=== PATIENT | female | born 1985 | race Hispanic/Latino ===

== ENCOUNTER 2017-08-01 16:59 | Observation (INO) | payer OTHER ==
[2017-08-01] MEDS ORDERED: Hydrocortisone- 100 MG in Sodium Chloride 0.9% 100 ML IV STA (17:41)
[2017-08-01] MEDS ORDERED: Sodium Chloride 0.9% 1,000 ML IV STA ×2 (17:44→20:24)
[2017-08-01 18:05] LABS: BASO % 0.1 % (0.0-2.0); EOS # 0.1 K/uL (0.0-0.7); EOS % 0.6 % (0.0-4.0); HEMATOCRIT 42.9 % (34.0-47.0); LYMPH # 2.2 K/uL (1.0-4.3); LYMPH % 17.1 % (20.0-40.0); MEAN CELL VOLUME 82.6 fl (81.0-99.0); MEAN CORPUSCULAR HGB CONC 31.5 g/dL (33.0-37.0); MEAN PLATELET VOLUME 7.9 fl (7.2-11.7); MONO # 0.3 K/uL (0.0-0.8); MONO % 2.4 % (0.0-10.0); NEUT # 10.4 K/uL (1.8-7.0); NEUT % 79.8 % (50.0-75.0); NRBC % 0.1 % (0.0-0.0); RED CELL DISTRIBUTION WIDTH 16.9 % (11.5-14.5); WHITE BLOOD COUNT 13.1 K/uL (4.8-10.8)
[2017-08-01 18:19] LABS: ALB/GLOB RATIO 1.4 (1.0-2.1); ALKALINE PHOSPHATASE 92 U/L (38-126); ALT/SGPT 31 U/L (9-52); AST/SGOT 18 U/L (14-36); BILIRUBIN,TOTAL 0.7 mg/dl (0.2-1.3); BLOOD UREA NITROGEN 12 mg/dl (7-17); CALCIUM 9.3 mg/dL (8.4-10.2); CARBON DIOXIDE 20 mmol/L (22-30); CHLORIDE 108 mmol/L (98-107); GFR AFRICAN-AMERICAN > 60; GLUCOSE,RANDOM 118 mg/dL (65-105); POTASSIUM 3.1 MMOL/L (3.6-5.0); SODIUM 141 mmol/l (132-148); TOTAL PROTEIN 7.6 G/DL (6.3-8.2)
[2017-08-01] MEDS ORDERED: Potassium Chloride 20 mEq ER Tab PO STA (18:44)
[2017-08-01 18:51] LABS: VENOUS BLOOD GAS BASE EXCESS -2.2 mmol/L (0.0-2.0); VENOUS BLOOD GAS PCO2 47 mmHg (40-60); VENOUS BLOOD PH 7.32 (7.32-7.43)
--- NOTE | 2017-08-01 19:28 | ED PDOC ---
HPI: General Adult Time Seen by Provider: 08/01/17 18:01 Chief Complaint (Nursing): GI Problem Chief Complaint (Provider): vomiting History Per: Patient (32 y/o female h/o Adrenal insufficiency here with vomiting since 12 noon. Patient took daily 15mg hydrocortisone in AM and missed her 10 mg pm dose. Attributes vomiting to this. Denies any fevers/ chills/uri/cough. ?diarrhea. No h/o abdominal surgeries.) Past Medical History Reviewed: Historical Data, Nursing Documentation, Vital Signs Vital Signs: Last Vital Signs Temp 98.0 F 08/01/17 17:11 Pulse 129 H 08/01/17 17:11 Resp 16 08/01/17 17:11 BP 128/87 08/01/17 17:11 Pulse Ox 98 08/01/17 17:11 - Surgical History Other surgeries: removal of adrenal gland - Family History Family History: States: No Known Family Hx - Home Medications Home Medications: Ambulatory Orders Medication Instructions Recorded Hydrocortisone [Cortef] 10 mg PO DAILY@1500 08/01/17 Hydrocortisone [Cortef] 15 mg PO DAILY 08/01/17 - Allergies Allergies/Adverse Reactions: Allergies Allergy/AdvReac Type Severity Reaction Status Date / Time Penicillins Allergy RASH Verified 08/01/17 17:11 Review of Systems ROS Statement: Except As Marked, All Systems Reviewed And Found Negative Gastrointestinal: Positive for: Vomiting Physical Exam - Reviewed Nursing Documentation Reviewed: Yes Vital Signs Reviewed: Yes - Physical Exam Appears: Positive for: Well, Non-toxic, No Acute Distress Head Exam: Positive for: ATRAUMATIC, NORMAL INSPECTION, NORMOCEPHALIC Skin: Positive for: Normal Color, Warm, DRY Eye Exam: Positive for: EOMI, Normal appearance, PERRL ENT: Positive for: Normal ENT Inspection Neck: Positive for: Normal, Painless ROM Cardiovascular/Chest: Positive for: Regular Rate, Rhythm Respiratory: Positive for: CNT, Normal Breath Sounds Gastrointestinal/Abdominal: Positive for: Normal Exam, Bowel Sounds, Soft Back: Positive for: Normal Inspection Extremity: Positive for: Normal ROM Neurologic/Psych: Positive for: Alert, Oriented - Laboratory Results Result Diagrams: 08/01/17 18:00 08/01/17 18:00 - ECG O2 Sat by Pulse Oximetry: 98 - Progress ED Course And Treament: cxr: nad Zofran 8 mg iv x 1 dose NS 1 liter wide open Hydrocortisone 100mg iv as d/w Dr. Sommer d/w Endocrine fellow [facility] for Dr. Castanon. kdur 40 meq x 1 dose d/w Dr. Long for admission Disposition - Clinical Impression Clinical Impression: Adrenal insufficiency, Vomiting - Patient ED Disposition Is Patient to be Admitted: Yes - Disposition Disposition Time: 19:10 Condition: FAIR - Pt Status Changed To: Hospital Disposition Of: Observation
[2017-08-01] MEDS ORDERED: Potassium Chloride 20 mEq ER Tab PO ONE ×2 (19:34→19:43)
[2017-08-01] MEDS ORDERED: Sodium Chloride 0.9% 1,000 ML IV SCH (22:45)
[2017-08-02 07:40] LABS: HEMATOCRIT 34.7 % (34.0-47.0); MEAN CELL VOLUME 81.6 fl (81.0-99.0); MEAN CORPUSCULAR HEMOGLOBIN 25.9 pg (27.0-31.0); MEAN CORPUSCULAR HGB CONC 31.8 g/dL (33.0-37.0); WHITE BLOOD COUNT 9.2 K/uL (4.8-10.8)
[2017-08-02 07:54] LABS: BLOOD UREA NITROGEN 11 mg/dl (7-17); CALCIUM 7.7 mg/dL (8.4-10.2); CARBON DIOXIDE 20 mmol/L (22-30); CHLORIDE 111 mmol/L (98-107); GFR AFRICAN-AMERICAN > 60; GLUCOSE,RANDOM 76 mg/dL (65-105); POTASSIUM 3.6 MMOL/L (3.6-5.0); SODIUM 140 mmol/l (132-148)
[2017-08-02 07:56] VITALS: BP 102/64; PULSE 91; RESP 17; TEMP 97.8; O2SAT 97
--- NOTE | 2017-08-02 08:48 | CARD ---
APPROVED REPORT EKG Measurement Heart [id number] <Conclusion> Normal sinus rhythm Normal ECG
--- NOTE | 2017-08-02 08:56 | RAD ---
PROCEDURE: CHEST RADIOGRAPH, 1 VIEW HISTORY: routine COMPARISON: None available. FINDINGS: LUNGS: No infiltrate identified bilaterally. PLEURA: No pneumothorax or pleural fluid seen. CARDIOVASCULAR: Normal. OSSEOUS STRUCTURES: No significant abnormalities. VISUALIZED UPPER ABDOMEN: Normal. OTHER FINDINGS: None. IMPRESSION: No acute cardiopulmonary disease appreciated.
--- NOTE | 2017-08-02 10:37 | CP.PCM.HP ---
History of Present Illness - History of Present Illness History of Present Illness: CC: N/V/D and Dizziness History of Present Illness: A 33 yoF h/o Adrenal insufficiency here with vomiting since 12 noon. Patient took daily 15mg hydrocortisone in AM and missed her 10 mg pm dose. Attributes vomiting to this.+diarrhea. No h/o abdominal surgeries. Associated dizziness. Denies any fevers/chills/uri/cough. Admitted hor Hypotension due adrenal Insufficiency due stresses. Received Hydrocortisone 100mg IV in the er. Present on Admission - Present on Admission Any Indicators Present on Admission: No Review of Systems - Review of Systems All systems: reviewed and no additional remarkable complaints except Past Patient History - Past Medical History & Family History Past Medical History?: Yes Past Family History: Reviewed and not pertinent - Past Social History Smoking Status: Never Smoked Alcohol: None Drugs: Denies - CARDIAC Hx Cardiac Disorders: No - PULMONARY Hx Respiratory Disorders: No - NEUROLOGICAL Hx Neurological Disorder: No - HEENT Hx HEENT Problems: Yes Other/Comment: Use Eyeglasses - RENAL Hx Chronic Kidney Disease: No - ENDOCRINE/METABOLIC Hx Endocrine Disorders: Yes Other/Comment: adrenal insufficiency - HEMATOLOGICAL/ONCOLOGICAL Hx Blood Disorders: No - INTEGUMENTARY Hx Dermatological Problems: No - MUSCULOSKELETAL/RHEUMATOLOGICAL Hx Musculoskeletal Disorders: No Hx Falls: No - GASTROINTESTINAL Hx Gastrointestinal Disorders: No - GENITOURINARY/GYNECOLOGICAL Hx Genitourinary Disorders: No - PSYCHIATRIC Hx Psychophysiologic Disorder: No Hx Substance Use: No - SURGICAL HISTORY Hx Surgeries: Yes Other/Comment: Adrenal glang removed - 2016. . Bunnion removal , and. Left breast cyst removal - ANESTHESIA Hx Anesthesia: Yes Hx Anesthesia Reactions: No Hx Malignant Hyperthermia: No Has any member of the family had a problem w/ anesthesia?: No Meds Allergies/Adverse Reactions: Allergies Allergy/AdvReac Type Severity Reaction Status Date / Time Penicillins Allergy RASH Verified 08/01/17 17:11 Physical Exam - Constitutional Appears: Well, No Acute Distress - Head Exam Head Exam: ATRAUMATIC, NORMAL INSPECTION, NORMOCEPHALIC - Eye Exam Eye Exam: EOMI, Normal appearance, PERRL Pupil Exam: NORMAL ACCOMODATION, PERRL - ENT Exam ENT Exam: Mucous Membranes Moist, Normal Exam - Neck Exam Neck exam: Positive for: Normal Inspection - Respiratory Exam Respiratory Exam: Clear to Auscultation Bilateral, NORMAL BREATHING PATTERN - Cardiovascular Exam Cardiovascular Exam: REGULAR RHYTHM, +S1, +S2 - GI/Abdominal Exam GI & Abdominal Exam: Normal Bowel Sounds, Soft. absent: Tenderness - Extremities Exam Extremities exam: Positive for: full ROM, normal capillary refill, normal inspection - Neurological Exam Neurological exam: Alert, CN II-XII Intact, Normal Gait, Oriented x3, Reflexes Normal - Psychiatric Exam Psychiatric exam: Normal Affect, Normal Mood - Skin Skin Exam: Dry, Intact, Normal Color, Warm Results - Vital Signs Recent Vital Signs: Last Vital Signs Temp 97.8 F 08/02/17 07:56 Pulse 91 H 08/02/17 07:56 Resp 17 08/02/17 07:56 BP 102/64 08/02/17 07:56 Pulse Ox 97 08/02/17 07:56 - Labs Result Diagrams: 08/02/17 06:15 08/02/17 06:15 Labs: Laboratory Results - last 24 hr 08/01/17 08/01/17 08/01/17 17:58 18:00 18:00 WBC 13.1 H RBC 5.19 Hgb 13.5 Hct 42.9 MCV 82.6 MCH 26.0 L MCHC 31.5 L RDW 16.9 H Plt Count 257 MPV 7.9 Neut % (Auto) 79.8 H Lymph % (Auto) 17.1 L [place] % (Auto) 2.4 Eos % (Auto) 0.6 Baso % (Auto) 0.1 Neut # 10.4 H Lymph # 2.2 [place] # 0.3 Eos # 0.1 Baso # 0.0 pO2 VBG pH VBG pCO2 VBG HCO3 VBG Total CO2 VBG O2 Sat (Calc) VBG Base Excess VBG Potassium Glucose Lactate FiO2 Sodium 141 Potassium 3.1 L Chloride 108 H Carbon Dioxide 20 L Anion Gap 16 BUN 12 Creatinine 0.9 Est GFR ( Amer) > 60 Est GFR (Non-Af Amer) > 60 POC Glucose (mg/dL) 118 H Random Glucose 118 H Calcium 9.3 Total Bilirubin 0.7 AST 18 ALT 31 Alkaline Phosphatase 92 Total Protein 7.6 Albumin 4.5 Globulin 3.1 Albumin/Globulin Ratio 1.4 Venous Blood Potassium 08/01/17 08/02/17 08/02/17 18:37 06:15 06:15 WBC 9.2 RBC 4.26 Hgb 11.0 L D Hct 34.7 MCV 81.6 MCH 25.9 L MCHC 31.8 L RDW 17.0 H Plt Count 218 MPV Neut % (Auto) Lymph % (Auto) [place] % (Auto) Eos % (Auto) Baso % (Auto) Neut # Lymph # [place] # Eos # Baso # pO2 9 L VBG pH 7.32 VBG pCO2 47 VBG HCO3 20.8 VBG Total CO2 25.6 VBG O2 Sat (Calc) 19.7 L VBG Base Excess -2.2 L VBG Potassium 3.0 L Glucose 100 Lactate 1.8 FiO2 21.0 Sodium 141.0 140 Potassium 3.6 Chloride 108.0 H 111 H Carbon Dioxide 20 L Anion Gap 13 BUN 11 Creatinine 0.7 Est GFR ( Amer) > 60 Est GFR (Non-Af Amer) > 60 POC Glucose (mg/dL) Random Glucose 76 Calcium 7.7 L Total Bilirubin AST ALT Alkaline Phosphatase Total Protein Albumin Globulin Albumin/Globulin Ratio Venous Blood Potassium 3.0 L - EKG Data EKG Interpreted by: Myself EKG shows normal: Sinus rhythm, [place], Intervals, QRS complexes, ST-T waves Rate: Normal - Imaging and Cardiology Chest x-ray Status: Report reviewed by me Additional comment: Normal study Assessment & Plan (1) Adrenal insufficiency Assessment and Plan: Hypotension Precipitated by N/V/D IVF Bolus abnd Standing dose 100cc/hr Hydrocortisone stress dose 100mg IV given in the ER Patient has Endocrinologits who recommended 45mg in Am and 30mg in PM Monitored overnight, and BP has been stable D/c home Status: Acute
--- NOTE | 2017-08-02 10:46 | CP.PCM.DIS ---
Provider - Provider Date of Admission: 08/01/17 19:10 Attending physician: Nelda Long MD Time Spent in preparation of Discharge (in minutes): 20 Diagnosis - Discharge Diagnosis (1) Adrenal insufficiency Status: Acute Hospital Course - Lab Results Lab Results: Most Recent Lab Values WBC 9.2 K/uL (4.8-10.8) 08/02/17 06:15 RBC 4.26 Mil/uL (3.80-5.20) 08/02/17 06:15 Hgb 11.0 g/dL (12.0-16.0) L D 08/02/17 06:15 Hct 34.7 % (34.0-47.0) 08/02/17 06:15 MCV 81.6 fl (81.0-99.0) 08/02/17 06:15 MCH 25.9 pg (27.0-31.0) L 08/02/17 06:15 MCHC 31.8 g/dL (33.0-37.0) L 08/02/17 06:15 RDW 17.0 % (11.5-14.5) H 08/02/17 06:15 Plt Count 218 K/uL (130-400) 08/02/17 06:15 MPV 7.9 fl (7.2-11.7) 08/01/17 18:00 Neut % (Auto) 79.8 % (50.0-75.0) H 08/01/17 18:00 Lymph % (Auto) 17.1 % (20.0-40.0) L 08/01/17 18:00 [place] % (Auto) 2.4 % (0.0-10.0) 08/01/17 18:00 Eos % (Auto) 0.6 % (0.0-4.0) 08/01/17 18:00 Baso % (Auto) 0.1 % (0.0-2.0) 08/01/17 18:00 Neut # 10.4 K/uL (1.8-7.0) H 08/01/17 18:00 Lymph # 2.2 K/uL (1.0-4.3) 08/01/17 18:00 [place] # 0.3 K/uL (0.0-0.8) 08/01/17 18:00 Eos # 0.1 K/uL (0.0-0.7) 08/01/17 18:00 Baso # 0.0 K/uL (0.0-0.2) 08/01/17 18:00 pO2 9 mm/Hg (30-55) L 08/01/17 18:37 VBG pH 7.32 (7.32-7.43) 08/01/17 18:37 VBG pCO2 47 mmHg (40-60) 08/01/17 18:37 VBG HCO3 20.8 mmol/L 08/01/17 18:37 VBG Total CO2 25.6 mmol/L (22-28) 08/01/17 18:37 VBG O2 Sat (Calc) 19.7 % (40-65) L 08/01/17 18:37 VBG Base Excess -2.2 mmol/L (0.0-2.0) L 08/01/17 18:37 VBG Potassium 3.0 mmol/L (3.6-5.2) L 08/01/17 18:37 Sodium 141.0 mmol/L (132-148) 08/01/17 18:37 Chloride 108.0 mmol/L (98-107) H 08/01/17 18:37 Glucose 100 mg/dL (65-105) 08/01/17 18:37 Lactate 1.8 mmol/L (0.7-2.1) 08/01/17 18:37 FiO2 21.0 % 08/01/17 18:37 Sodium 140 mmol/l (132-148) 08/02/17 06:15 Potassium 3.6 MMOL/L (3.6-5.0) 08/02/17 06:15 Chloride 111 mmol/L (98-107) H 08/02/17 06:15 Carbon Dioxide 20 mmol/L (22-30) L 08/02/17 06:15 Anion Gap 13 (10-20) 08/02/17 06:15 BUN 11 mg/dl (7-17) 08/02/17 06:15 Creatinine 0.7 mg/dl (0.7-1.2) 08/02/17 06:15 Est GFR ( Amer) > 60 08/02/17 06:15 Est GFR (Non-Af Amer) > 60 08/02/17 06:15 POC Glucose (mg/dL) 118 mg/dL (65-110) H 08/01/17 17:58 Random Glucose 76 mg/dL (65-105) 08/02/17 06:15 Calcium 7.7 mg/dL (8.4-10.2) L 08/02/17 06:15 Total Bilirubin 0.7 mg/dl (0.2-1.3) 08/01/17 18:00 AST 18 U/L (14-36) 08/01/17 18:00 ALT 31 U/L (9-52) 08/01/17 18:00 Alkaline Phosphatase 92 U/L (38-126) 08/01/17 18:00 Total Protein 7.6 G/DL (6.3-8.2) 08/01/17 18:00 Albumin 4.5 g/dL (3.5-5.0) 08/01/17 18:00 Globulin 3.1 gm/dL (2.2-3.9) 08/01/17 18:00 Albumin/Globulin Ratio 1.4 (1.0-2.1) 08/01/17 18:00 Venous Blood Potassium 3.0 mmol/L (3.6-5.2) L 08/01/17 18:37 Discharge Exam - Head Exam Head Exam: ATRAUMATIC, NORMAL INSPECTION, NORMOCEPHALIC - Eye Exam Eye Exam: EOMI, Normal appearance, PERRL Pupil Exam: NORMAL ACCOMODATION, PERRL - Respiratory Exam Respiratory Exam: Clear to PA & Lateral, NORMAL BREATHING PATTERN - GI/Abdominal Exam GI & Abdominal Exam: Normal Bowel Sounds - Rectal Exam Rectal Exam: NORMAL INSPECTION - Exam Exam: Circumcision, NORMAL INSPECTION External exam: NORMAL EXTERNAL EXAM Speculum exam: NORMAL SPECULUM EXAM Bimanual exam: NORMAL BIMANUAL EXAM - Neurological Exam Neurological exam: Alert, CN II-XII Intact, Normal Gait, Oriented x3, Reflexes Normal - Psychiatric Exam Psychiatric exam: Normal Affect, Normal Mood - Skin Skin Exam: Dry, Intact, Normal Color, Warm Discharge Plan - Follow Up Plan Condition: GOOD Disposition: HOME/ ROUTINE
== END 2017-08-02 13:08 | disposition home or self-care (01) ==
LOC: H.ER 16:59 → H.ERHOLD 19:10 → H.MEDSURG1 21:08
PROVIDERS: ADMIT Internal Medicine; ATTEND Internal Medicine
DX: E27.40 Unspecified adrenocortical insufficiency (principal); I95.9 Hypotension, unspecified; Z88.0 Allergy status to penicillin
CPT/HCPCS: 36415; 71010; 80048; 80053; 81025; 82803; 82948; 83036; 85025; 85027; 87040; 93005; 96360; 96374; 99284; G0378; J1720; J2405; J7040

== ENCOUNTER 2018-11-24 08:39 | Emergency (ER) | payer OTHER ==
[2018-11-24 08:47] VITALS: BMI 21.1
[2018-11-24 08:48] VITALS: O2SAT 98
[2018-11-24] MEDS: Dextrose 5%/0.9% NS 1,000 ML IV SCH (09:32)
[2018-11-24 09:39] LABS: BASO % 0.2 % (0.0-2.0); HEMOGLOBIN 13.6 g/dL (12.0-16.0); LYMPH # 0.4 K/uL (1.0-4.3); LYMPH % 7.7 % (20.0-40.0); MEAN CELL VOLUME 84.4 fl (81.0-99.0); MEAN CORPUSCULAR HGB CONC 33.2 g/dL (33.0-37.0); MEAN PLATELET VOLUME 7.7 fl (7.2-11.7); MONO # 0.2 K/uL (0.0-0.8); MONO % 4.4 % (0.0-10.0); NEUT # 4.8 K/uL (1.8-7.0); NEUT % 87.7 % (50.0-75.0); PLATELET COUNT 237 K/uL (130-400); RBC 4.87 Mil/uL (3.80-5.20); RED CELL DISTRIBUTION WIDTH 13.7 % (11.5-14.5); WHITE BLOOD COUNT 5.5 K/uL (4.8-10.8)
[2018-11-24 10:09] LABS: ALB/GLOB RATIO 1.3 (1.0-2.1); ALBUMIN 4.3 g/dL (3.5-5.0); ALT/SGPT 22 U/L (9-52); AST/SGOT 23 U/L (14-36); BLOOD UREA NITROGEN 17 mg/dl (7-17); GFR NON-AFRICAN AMERICAN > 60
[2018-11-24 12:20] LABS: BANDS 3 % (0-2); LYMPHOCYTE 11 % (20-50); MONOCYTE 5 % (0-10); NEUTROPHIL 81 % (42-75); PLATELET ESTIMATE NORMAL (NORMAL); TOTAL CELLS COUNTED 100
[2018-11-24 14:37] LABS: SQUAMOUS EPITHIAL 6 /hpf (0-5); URINE BILIRUBIN NEGATIVE (NEGATIVE); URINE CLARITY SLIGHTY-CLOUDY (Clear); URINE COLOR YELLOW (YELLOW); URINE GLUCOSE (UA) NEG (NEGATIVE); URINE LEUKOCYTE ESTERASE NEG Leu/uL (Negative); URINE PROTEIN 30 mg/dL (NEGATIVE); URINE UROBILINOGEN 0.2-1.0 mg/dL (0.2-1.0)
[2018-11-24 14:52] LABS: URINE BLOOD SMALL (NEGATIVE)
[2018-11-24] MEDS: Lactated Ringer's 1,000 ML IV SCH (15:25)
--- NOTE | 2018-11-24 16:21 | ED PDOC ---
HPI: General Adult Time Seen by Provider: 11/24/18 09:09 Chief Complaint (Nursing): GI Problem Chief Complaint (Provider): vomiting, nausea, weakness History Per: Patient History/Exam Limitations: no limitations Onset/Duration Of Symptoms: Days (1), Gradual Current Symptoms Are (Timing): Still Present Severity: Severe Additional Complaint(s): 33yo female history of adrenal insufficiency, takes hydrocortisone 5mg daily, since yesterday having nausea and vomiting, unable to keep oral hydrocortisone down. Denies fever although feels chills, body aches. Denies preceeding headache, sore throat, or other flu like symptoms. Had prior episode of spontaneous adrenal crisis requiring hospitalization but this episode "not as bad", as prior was almost unconscious. 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 Past Medical History Reviewed: Historical Data, Nursing Documentation, Vital Signs Vital Signs: Last Vital Signs Temp 98.6 F 11/24/18 08:47 Pulse 127 H 11/24/18 08:47 Resp 17 11/24/18 08:47 BP 104/75 11/24/18 08:47 Pulse Ox 98 11/24/18 08:47 - Medical History PMH: Luli's Syndrome Denies: Chronic Kidney Disease - Surgical History Surgical History: Other surgeries: adrenalectomy - Family History Family History: States: Unknown Family Hx - Living Arrangements Living Arrangements: With Family - Social History Current smoker - smoking cessation education provided: No - Immunization History Hx Tetanus Toxoid Vaccination: No Hx Influenza Vaccination: No Hx Pneumococcal Vaccination: No - Home Medications Home Medications: Ambulatory Orders Medication Instructions Recorded Hydrocortisone [Cortef] 10 mg PO DAILY@1500 08/01/17 Hydrocortisone [Cortef] 15 mg PO DAILY 08/01/17 Ondansetron ODT [Zofran ODT] 4 mg PO Q6 PRN #10 odt 11/24/18 - Allergies Allergies/Adverse Reactions: Allergies Allergy/AdvReac Type Severity Reaction Status Date / Time Penicillins Allergy RASH Verified 08/01/17 17:11 Review of Systems Constitutional: Positive for: Weakness, Malaise Eyes: Negative for: Pain, Vision Change, Conjunctivae Inflammation ENT: Negative for: Ear Discharge, Throat Pain Cardiovascular: Negative for: Chest Pain, Palpitations, Orthopnea Respiratory: Negative for: Shortness of Breath Gastrointestinal: Positive for: Vomiting, Diarrhea Genitourinary Female: Negative for: Dysuria, Hematuria Musculoskeletal: Positive for: Other (myalgias) Skin: Negative for: Rash, Lesions, Jaundice Neurological: Positive for: Dizziness. Negative for: Weakness, Numbness, Headache Psych: Negative for: Suicidal ideation Physical Exam - Reviewed Nursing Documentation Reviewed: Yes Vital Signs Reviewed: Yes - Physical Exam Appears: Positive for: Non-toxic, Uncomfortable (dehydrated appearing) Head Exam: Positive for: ATRAUMATIC, NORMAL INSPECTION, NORMOCEPHALIC Skin: Positive for: Warm, Dry, Pallor. Negative for: Jaundice, Mottled, Cyanosis Eye Exam: Positive for: Normal appearance, EOMI, PERRL ENT: Positive for: Normal ENT Inspection, Other (dry mucous membranes) Neck: Positive for: Normal, Painless ROM Cardiovascular/Chest: Positive for: Regular Rate, Rhythm Respiratory: Positive for: Normal Breath Sounds. Negative for: Decreased Breath Sounds Pulses-Radial (L): 3+/4+ Pulses-Radial (R): 3+/4+ Gastrointestinal/Abdominal: Positive for: Soft. Negative for: Tenderness Back: Positive for: Normal Inspection Extremity: Positive for: Normal ROM. Negative for: Swelling Neurological/Psych: Positive for: Awake, Alert, Normal Tone, Oriented. Negative for: Lethargic, Motor/Sensory Deficits, Facial Droop - Laboratory Results Result Diagrams: 11/24/18 09:29 11/24/18 09:29 Lab Results: Troponin I < 0.0120 ng/mL (0.00-0.120) 11/24/18 09:29 Total Bilirubin 0.8 mg/dl (0.2-1.3) 11/24/18 09:29 AST 23 U/L (14-36) 11/24/18 09:29 ALT 22 U/L (9-52) 11/24/18 09:29 Alkaline Phosphatase 75 U/L (38-126) 11/24/18 09:29 Total Protein 7.5 G/DL (6.3-8.2) 11/24/18 09:29 Albumin 4.3 g/dL (3.5-5.0) 11/24/18 09:29 Globulin 3.2 gm/dL (2.2-3.9) 11/24/18 09:29 Albumin/Globulin Ratio 1.3 (1.0-2.1) 11/24/18 09:29 Urine Color Yellow (YELLOW) 11/24/18 09:45 Urine Clarity Slighty-cloudy (Clear) 11/24/18 09:45 Urine pH 5.0 (5.0-8.0) 11/24/18 09:45 Ur Specific [place] 1.030 (1.003-1.030) 11/24/18 09:45 Urine Protein 30 mg/dL (NEGATIVE) 11/24/18 09:45 Urine Glucose (UA) Neg mg/dL (NEGATIVE) 11/24/18 09:45 Urine Ketones Negative mg/dL (NEGATIVE) 11/24/18 09:45 Urine Blood Small (NEGATIVE) 11/24/18 09:45 Urine Nitrate Negative (NEGATIVE) 11/24/18 09:45 Urine Bilirubin Negative (NEGATIVE) 11/24/18 09:45 Urine Urobilinogen 0.2-1.0 mg/dL (0.2-1.0) 11/24/18 09:45 Ur Leukocyte Esterase Neg [place]/uL (Negative) 11/24/18 09:45 Urine RBC (Auto) 6 /hpf (0-3) H 11/24/18 09:45 Urine Microscopic WBC 1 /hpf (0-5) 11/24/18 09:45 Ur Squamous Epith Cells 6 /hpf (0-5) H 11/24/18 09:45 - ECG O2 Sat by Pulse Oximetry: 98 Medical Decision Making Medical Decision Making: IV established, her physician recommendations were reviewed via a pre-printed form she carries. Rec IVF, check cortisol and ACTH, antiemetics and search for source of infection or trigger. She denies focal abdominal pain. labs reviewed, c/w dehydration IVF 3L given with improvement, also given tylenol and zofran. 1340 her fur dresser recommends hydrocortisone 50mg if needed, ordered 4pm HR markedly improved, remains sinus now in 80s Feels better, color better, clinically much improved. Tolerated PO Wants to go home and followup w her endo team at [facility] [place]. Labs printed for her to review w PMD/endocrine. Indications for return discusse d. Disposition - Clinical Impression Clinical Impression: Vomiting, Dehydration, Adrenal insufficiency - Patient ED Disposition Is Patient to be Admitted: No Counseled Patient/Family Regarding: Studies Performed, Diagnosis, Need For Followup, Rx Given - Disposition Disposition: Routine/Home Disposition Time: 15:45 (improved) Condition: STABLE Additional Instructions: Followup with your fur dresser this week. Return to ER for any worse or new symptoms. Take medications as prior directed, add zofran ODT 4mg every 4-6hrs as needed for nausea. Prescriptions: Ondansetron ODT [Zofran ODT] 4 mg PO Q6 PRN #10 odt PRN Reason: Nausea/Vomiting Instructions: Adrenal Crisis, Dehydration, Adult (DC), Nausea and Vomiting, Adult Forms: [facility] (Uzbek)
--- NOTE | 2018-11-24 16:32 | RAD ---
Date of service: 11/24/2018 PROCEDURE: CHEST RADIOGRAPH, 1 VIEW HISTORY: [place] HX ADRENAL CRISIS COMPARISON: 08/01/2017. FINDINGS: LUNGS: Clear. PLEURA: No pneumothorax or pleural fluid seen. CARDIOVASCULAR: No aortic atherosclerotic calcification present. Normal. OSSEOUS STRUCTURES: No significant abnormalities. VISUALIZED UPPER ABDOMEN: Normal. OTHER FINDINGS: None. IMPRESSION: No active disease.No significant interval change compared to the prior examination(s). Concordant results with the preliminary interpretation rendered by the emergency department physician procedure.
--- NOTE | 2018-11-24 17:29 | CARD ---
APPROVED REPORT Date of service: 11/24/2018 EKG Measurement Heart [id number] <Conclusion> Normal sinus rhythm Baseline artifact precludes proper assessment Nonspecific ST and T wave abnormality Abnormal ECG
[2018-11-24] MEDS ORDERED: Hydrocortisone- 50 MG in Sodium Chloride 0.9% 100 ML IV SCH (21:00)
[2018-11-24 21:13] VITALS: BP 106/54; PULSE 84; RESP 16; TEMP 99.6
== END 2018-11-24 16:20 | disposition home or self-care (01) ==
LOC: H.ER 08:39
DX: R11.10 Vomiting, unspecified (principal); E86.0 Dehydration; E27.40 Unspecified adrenocortical insufficiency; Z88.0 Allergy status to penicillin
CPT/HCPCS: 71045; 80053; 81003; 82024; 82533; 82550; 82948; 83735; 84100; 84443; 84484; 85025; 87804; 93005; 96361; 96374; 99285; J1720; J7042; J7120